=== PATIENT | male | born 1950 | race Caucasian/White ===

== ENCOUNTER 2016-10-03 03:38 | Emergency (ER) | payer BC, SELFPAY ==
[~2016-10-03] VITALS: Ht 170.2 cm; Wt 63.2 kg
[2016-10-03] MEDS ORDERED: IPRATROPIUM 0.5MG/ALBUTEROL 2.5MG INH SOL UD 3ML (DUONEB)(J7620) As Ordered ONE (03:44)
[2016-10-03] MEDS: IPRATROPIUM 0.5MG/ALBUTEROL 2.5MG INH SOL UD 3ML (DUONEB)(J7620) NEB PRN ×2 (03:49→04:03)
[2016-10-03 03:51] VITALS: O2SAT 97
[2016-10-03 04:03] LABS: BASO % 0.6 % (0.0-1.0); EOS # 0.4 K/mm3 (0.0-0.50); EOS % 4.2 % (0.0-3.0); LARGE UNSTAINED CELL # 0.3 K/mm3 (0.0-0.4); LARGE UNSTAINED CELL % 3.2 % (0.0-4.0); LYMPH # 3.8 K/mm3 (1.5-4.5); MEAN CORPUSCULAR HEMOGLOBIN 31.5 pg (27.0-33.0); MEAN CORPUSCULAR HGB CONC 32.7 g/dl (32.0-36.5); MEAN CORPUSCULAR VOLUME 96.5 fl (80.0-96.0); MONO # 0.6 K/mm3 (0.0-0.8); MONO % 7.3 % (0.0-5.0); NEUTROPHILS # 3.3 K/mm3 (1.8-7.7); NEUTROPHILS % 39.6 % (36.0-66.0); PLATELET COUNT, AUTOMATED 323 k/mm3 (150-450); WHITE BLOOD COUNT 8.4 K/mm3 (4.0-10.0)
[2016-10-03 04:04] LABS: ABG BASE EXCESS -2.1 (-2.0-2.0); ABG HCO3 25.7 MEQ/L (22.0-26.0); ABG PARTIAL PRESSURE CO2 55.6 mmHg (35.0-45.0); ABG PARTIAL PRESSURE O2 156.9 mmHg (75.0-100.0); ABG STANDARD HCO3 22.8 MEQ/L (22.0-26.0); ABG TOTAL CO2 27.4 MEQ/L (23.0-31.0); ABG pH (ARTERIAL) 7.282 UNITS (7.350-7.450)
[2016-10-03 04:34] LABS: ANION GAP 6 MEQ/L (8-16); BLOOD UREA NITROGEN 18 MG/DL (7-18); CALCIUM LEVEL 8.5 MG/DL (8.8-10.2); CARBON DIOXIDE LEVEL 28 MEQ/L (21-32); CHLORIDE LEVEL 110 MEQ/L (98-107); CREATININE FOR GFR 0.84 MG/DL (0.70-1.30); GLOMERULAR FILTRATION RATE > 60.0 (>49); GLUCOSE, FASTING 160 MG/DL (80-110); SODIUM LEVEL 144 MEQ/L (136-145)
[2016-10-03 05:48] LABS: ABG BASE EXCESS -0.2 (-2.0-2.0); ABG HCO3 25.5 MEQ/L (22.0-26.0); ABG PARTIAL PRESSURE CO2 45.8 mmHg (35.0-45.0); ABG PARTIAL PRESSURE O2 103.9 mmHg (75.0-100.0); ABG STANDARD HCO3 24.3 MEQ/L (22.0-26.0); ABG TOTAL CO2 26.9 MEQ/L (23.0-31.0); ABG pH (ARTERIAL) 7.364 UNITS (7.350-7.450)
[2016-10-03] MEDS ORDERED: PRED20TA PO (07:33)
[2016-10-03 07:41] VITALS: BP 107/59
--- NOTE | 2016-10-03 07:53 | REP ---
Portable chest: Single view. History: Dyspnea and cough. Comparison study: November 19, 2015 Findings: The lungs are hyperinflated but clear. EKG electrodes are seen. Heart size is normal. Pulmonary vasculature is not increased. No bony abnormality is seen. Impression: Hyperinflation otherwise no acute disease. Signed by Morgan Sierra MD 10/03/2016 07:45 A
--- NOTE | 2016-10-04 10:17 | ECGEPIP ---
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
== END 2016-10-03 07:54 | disposition home or self-care (01) ==
LOC: EDBD 03:38 → M ED 03:38
DX: J96.02 Acute respiratory failure with hypercapnia (principal); J44.9 Chronic obstructive pulmonary disease, unspecified; F17.210 Nicotine dependence, cigarettes, uncomplicated

== ENCOUNTER → 2017-11-04 | Outpatient (CLI) | payer OTHER ==
[2017-11-04 10:10] LABS: HEMATOCRIT 44.6 % (42.0-52.0); HEMOGLOBIN 14.9 g/dl (13.5-17.5); MEAN CORPUSCULAR HEMOGLOBIN 31.2 pg (27.0-33.0); MEAN CORPUSCULAR HGB CONC 33.4 g/dl (32.0-36.5); MEAN CORPUSCULAR VOLUME 93.3 fl (80.0-96.0); PLATELET COUNT, AUTOMATED 298 10^3/uL (150-450); RED BLOOD COUNT 4.78 10^6/uL (4.30-6.10); RED CELL DISTRIBUTION WIDTH 13.7 % (11.5-14.5)
[2017-11-04 10:46] LABS: ALBUMIN 3.5 GM/DL (3.2-5.2); ALBUMIN/GLOBULIN RATIO 1.06 (1.00-1.93); ALKALINE PHOSPHATASE 74 U/L (45-117); ALT/SGPT 21 U/L (12-78); ANION GAP 8 MEQ/L (8-16); AST/SGOT 13 U/L (7-37); BILIRUBIN,TOTAL 0.2 MG/DL (0.2-1.0); BLOOD UREA NITROGEN 19 MG/DL (7-18); CALCIUM LEVEL 9.4 MG/DL (8.8-10.2); CARBON DIOXIDE LEVEL 27 MEQ/L (21-32); CHLORIDE LEVEL 105 MEQ/L (98-107); CHOLESTEROL LEVEL 211 MG/DL (<200); CHOLESTEROL RISK RATIO 2.776 (<5); CREATININE FOR GFR 0.85 MG/DL (0.70-1.30); GLOMERULAR FILTRATION RATE > 60.0 (>49); GLUCOSE, FASTING 95 MG/DL (70-100); HDL CHOLESTEROL 76 MG/DL (>40); LDL CHOLESTEROL 116 MG/DL (<100); NON-HDL-C 135 MG/DL; POTASSIUM SERUM 4.3 MEQ/L (3.5-5.1); SODIUM LEVEL 140 MEQ/L (136-145); TOTAL PROTEIN 6.8 GM/DL (6.4-8.2); TRIGLYCERIDES LEVEL 97 MG/DL (<150)
== END ==
LOC: M LAB 09:36
DX: Z00.01 Encounter for general adult medical examination with abnormal findings (principal); J44.9 Chronic obstructive pulmonary disease, unspecified; I45.9 Conduction disorder, unspecified; F17.210 Nicotine dependence, cigarettes, uncomplicated
CPT/HCPCS: 80053

== ENCOUNTER → 2017-11-18 | Outpatient (CLI) | payer OTHER | LOC: M RAD 08:12 | DX: Z12.2 Encounter for screening for malignant neoplasm of respiratory organs (principal); F17.210 Nicotine dependence, cigarettes, uncomplicated; R91.1 Solitary pulmonary nodule | CPT/HCPCS: G0297 ==

== ENCOUNTER → 2017-12-30 | Outpatient (CLI) | payer OTHER | LOC: M PLARAD 14:11 | DX: R91.1 Solitary pulmonary nodule (principal) | CPT/HCPCS: 78815 ==

== ENCOUNTER → 2018-03-27 | Outpatient (CLI) | payer MEDICARE ==
[~2018-03-27] MED LIST: PRED20TA PO
--- NOTE | 2018-03-27 09:05 | REP ---
CT of the chest without IV contrast: Comparisons are the low-dose lung screening CT dated 11/18/2017 and the whole body PET scan dated 12/30/2017. There is a 9 ml spiculated lung nodule posteriorly in the apex of the right upper lobe on image 22, not significantly changed from the comparison studies. No other nodules or masses are identified. There are no infiltrates or pleural effusions. There is bronchiectasis. There is no mediastinal lymph node enlargement. In the absence of IV contrast the study is insensitive for hilar lymph node enlargement. There is no axillary lymph node enlargement. The unenhanced thoracic aorta is unremarkable except for occasional calcified atheroma. Cardiac size is normal. There is no pericardial effusion. The visualized unenhanced upper abdominal contents are unremarkable. There is no adrenal mass. Impression: Spiculated 9 mm nodule posteriorly in the right upper lobe apex, similar to the comparison studies. No other nodules or masses. Bronchiectasis. Electronically Signed by Paul Alvarez MD 03/27/2018 08:58 A
== END ==
LOC: M RAD 07:50
PROVIDERS: ATTEND Internal Medicine Pulmonary Disease
DX: R91.1 Solitary pulmonary nodule (principal); J47.9 Bronchiectasis, uncomplicated

== ENCOUNTER 2018-07-05 21:48 | Emergency (ER) | payer MEDICARE ==
[~2018-07-05] VITALS: Ht 175.3 cm; Wt 63.6 kg
[2018-07-05] MEDS ORDERED: AMOX875T (21:57)
[2018-07-05] MEDS ORDERED: PRED10TA2 (21:57)
[2018-07-05] MEDS ORDERED: ALBU8.5H (21:57)
[2018-07-05] MEDS ORDERED: ALBU83IN (21:57)
[2018-07-05 22:26] LABS: BASO % 0.5 % (0.0-1.0); EOS # 0.3 10^3/uL (0.0-0.50); EOS % 3.6 % (0.0-3.0); HEMATOCRIT 42.6 % (42.0-52.0); HEMOGLOBIN 14.1 g/dl (13.5-17.5); LYMPH # 1.8 10^3/uL (1.5-4.5); LYMPH % 21.4 % (24.0-44.0); MEAN CORPUSCULAR HEMOGLOBIN 31.5 pg (27.0-33.0); MEAN CORPUSCULAR HGB CONC 33.1 g/dl (32.0-36.5); MEAN CORPUSCULAR VOLUME 95.1 fl (80.0-96.0); MONO # 0.9 10^3/uL (0.0-0.8); MONO % 10.4 % (0.0-5.0); NEUTROPHILS # 5.4 10^3/uL (1.8-7.7); PLATELET COUNT, AUTOMATED 251 10^3/uL (150-450); RED BLOOD COUNT 4.48 10^6/uL (4.30-6.10); WHITE BLOOD COUNT 8.5 10^3/uL (4.0-10.0)
[2018-07-05 22:33] LABS: BLOOD UREA NITROGEN 14 MG/DL (7-18); CALCIUM LEVEL 8.4 MG/DL (8.8-10.2); CARBON DIOXIDE LEVEL 26 MEQ/L (21-32); CHLORIDE LEVEL 111 MEQ/L (98-107); CREATININE FOR GFR 0.71 MG/DL (0.70-1.30); GLOMERULAR FILTRATION RATE > 60.0 (>49); GLUCOSE, FASTING 128 MG/DL (70-100); POTASSIUM SERUM 4.4 MEQ/L (3.5-5.1); SODIUM LEVEL 142 MEQ/L (136-145)
[2018-07-05] MEDS ORDERED: IPRATROPIUM 0.5MG/ALBUTEROL 2.5MG INH SOL UD 3ML (DUONEB)(J7620) NEB ONE (23:30)
[2018-07-06] MEDS ORDERED: PRED20TA PO (01:08)
[2018-07-06 01:15] VITALS: BP 119/67
--- NOTE | 2018-07-06 09:01 | REP ---
Clinical: Cough and shortness of breath . Comparison: 10/03/2016 . Technique: PA and lateral. Findings: The mediastinum and cardiac silhouette are normal. The lung garza are clear and without acute consolidation, effusion, or pneumothorax. The skeletal structures are intact and normal. Impression: 1. No acute cardiopulmonary process. Electronically Signed by Oliver Madden MD 07/06/2018 08:52 A
== END 2018-07-06 01:30 | disposition home or self-care (01) ==
LOC: M ED 21:48
DX: J44.1 Chronic obstructive pulmonary disease with (acute) exacerbation (principal); J45.909 Unspecified asthma, uncomplicated; Z72.0 Tobacco use

== ENCOUNTER 2018-08-02 00:04 | Emergency (ER) | payer MEDICARE ==
[~2018-08-02] VITALS: Ht 175.3 cm; Wt 61.4 kg
[~2018-08-02 00:04] MED LIST changes: +ALBU8.5H; +ALBU83IN; +AMOX875T; +PRED10TA2
[2018-08-02] MEDS ORDERED: dexameTHASONE 20 MG/5 ML VIAL (J1100) IV ONE (00:15)
[2018-08-02] MEDS ORDERED: IPRATROPIUM 0.5MG/ALBUTEROL 2.5MG INH SOL UD 3ML (DUONEB)(J7620) NEB ONE (00:15)
[2018-08-02 00:16] VITALS: BP 142/89
[2018-08-02] MEDS ORDERED: PRED20TA PO (00:21)
[2018-08-02 00:29] LABS: BASO % 0.6 % (0.0-1.0); EOS # 0.2 10^3/uL (0.0-0.50); EOS % 3.5 % (0.0-3.0); HEMATOCRIT 44.4 % (42.0-52.0); HEMOGLOBIN 14.4 g/dl (13.5-17.5); LYMPH % 30.1 % (24.0-44.0); MEAN CORPUSCULAR HEMOGLOBIN 31.3 pg (27.0-33.0); MEAN CORPUSCULAR HGB CONC 32.4 g/dl (32.0-36.5); MEAN CORPUSCULAR VOLUME 96.5 fl (80.0-96.0); MONO # 0.7 10^3/uL (0.0-0.8); MONO % 10.4 % (0.0-5.0); NEUTROPHILS # 3.6 10^3/uL (1.8-7.7); NEUTROPHILS % 55.2 % (36.0-66.0); PLATELET COUNT, AUTOMATED 264 10^3/uL (150-450); WHITE BLOOD COUNT 6.6 10^3/uL (4.0-10.0)
[2018-08-02 01:03] LABS: BLOOD UREA NITROGEN 15 MG/DL (7-18); CALCIUM LEVEL 9.6 MG/DL (8.8-10.2); CARBON DIOXIDE LEVEL 32 MEQ/L (21-32); CHLORIDE LEVEL 108 MEQ/L (98-107); CK-MB VALUE MASS 2.8 NG/ML (<3.6); CPK CREATINE PHOSPHOKINASE 191 U/L (39-308); GLOMERULAR FILTRATION RATE > 60.0 (>49); GLUCOSE, FASTING 136 MG/DL (70-100); MB/CK RELATIVE INDEX 1.47 (< OR =4); SODIUM LEVEL 145 MEQ/L (136-145); TROPONIN I < 0.02 NG/ML (< 0.10)
--- NOTE | 2018-08-02 07:06 | ECGEPIP ---
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
--- NOTE | 2018-08-02 08:21 | REP ---
Portable chest, 12:51 a.m., single AP view with the patient sitting: Comparisons are 10 10/31/2015 and 07/05/2018. There is chronic hyperinflation suggestive of COPD, however, requiring clinical confirmation. The lung garza otherwise clear. The cardiac size is normal. The marcie, mediastinum, skeletal structures are unremarkable. Impression: No acute cardiopulmonary findings. Chronic hyperinflation. Electronically Signed by Paul Alvarez MD 08/02/2018 08:13 A
== END 2018-08-02 01:13 | disposition home or self-care (01) ==
LOC: M ED 00:04
DX: J44.9 Chronic obstructive pulmonary disease, unspecified (principal); I45.10 Unspecified right bundle-branch block; J45.909 Unspecified asthma, uncomplicated; Z72.0 Tobacco use
CPT/HCPCS: 36415; 71045; 80048; 82550; 82553; 84484; 85025; 93005; 93041; 94640; 94760; 99285; J1100

== ENCOUNTER → 2018-09-22 | Outpatient (CLI) | payer MEDICARE ==
--- NOTE | 2018-09-23 07:44 | REP ---
REASON FOR EXAM: Followup pulmonary nodule. All priors were reviewed. The latest is 03/27/2018. The latest prior showed a 9 mm sized right upper lobe spiculated nodule felt to be similar compared to prior exams. The mediastinum nd pulmonary marcie are unchanged. There is no evidence of a mass or adrenopathy. There are no pleural or pericardial effusions. There is no change in the appearance of the imaged upper abdomen or imaged osseous structures. Evaluation of the lung garza shows an unchanged spiculated nodule in the right upper lobe which measures 9 mm. There is lung field hyperexpansion and cylindrical bronchiectasis status quo. No new abnormal nodules, masses, or opacities have developed since the latest prior. IMPRESSION:1. Stable CT findings as described above. The right upper lobe spiculated nodule has been stable. 2. Other chronic lung field changes which also appear stable. Continued surveillance is recommended. Electronically Signed by Lacho Zimmerman DO 09/23/2018 09:35 A
== END ==
LOC: M RAD 12:38
PROVIDERS: ATTEND Internal Medicine Pulmonary Disease
DX: R91.1 Solitary pulmonary nodule (principal)

== ENCOUNTER 2018-10-09 23:46 | Emergency (ER) | payer MEDICARE ==
[~2018-10-09] VITALS: Ht 175.3 cm; Wt 61.4 kg
[2018-10-10 00:11] LABS: BASO % 0.5 % (0.0-1.0); EOS # 0.2 10^3/uL (0.0-0.50); EOS % 2.4 % (0.0-3.0); HEMATOCRIT 43.7 % (42.0-52.0); HEMOGLOBIN 14.5 g/dl (13.5-17.5); LYMPH # 2.4 10^3/uL (1.5-4.5); LYMPH % 28.9 % (24.0-44.0); MEAN CORPUSCULAR HEMOGLOBIN 31.2 pg (27.0-33.0); MEAN CORPUSCULAR HGB CONC 33.2 g/dl (32.0-36.5); MONO # 0.8 10^3/uL (0.0-0.8); MONO % 10.2 % (0.0-5.0); NEUTROPHILS # 4.7 10^3/uL (1.8-7.7); NEUTROPHILS % 57.8 % (36.0-66.0); PLATELET COUNT, AUTOMATED 256 10^3/uL (150-450); RED BLOOD COUNT 4.65 10^6/uL (4.30-6.10); WHITE BLOOD COUNT 8.2 10^3/uL (4.0-10.0)
[2018-10-10] MEDS ORDERED: dexameTHASONE 20 MG/5 ML VIAL (J1100) IV ONE (00:30)
[2018-10-10 00:31] LABS: BLOOD UREA NITROGEN 18 MG/DL (7-18); CALCIUM LEVEL 9.6 MG/DL (8.8-10.2); CARBON DIOXIDE LEVEL 31 MEQ/L (21-32); CHLORIDE LEVEL 107 MEQ/L (98-107); CREATININE FOR GFR 0.94 MG/DL (0.70-1.30); GLOMERULAR FILTRATION RATE > 60.0 (>49); GLUCOSE, FASTING 129 MG/DL (70-100); POTASSIUM SERUM 3.9 MEQ/L (3.5-5.1); SODIUM LEVEL 143 MEQ/L (136-145)
[2018-10-10] MEDS: IPRATROPIUM 0.5MG/ALBUTEROL 2.5MG INH SOL UD 3ML (DUONEB)(J7620) NEB SCH ×3 (00:31→00:43)
[2018-10-10 01:15] VITALS: BP 105/56
[2018-10-10] MEDS ORDERED: PRED20TA PO (01:20)
--- NOTE | 2018-10-10 07:45 | ECGEPIP ---
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
--- NOTE | 2018-10-10 07:51 | REP ---
Clinical: Cough and dyspnea . Comparison: 08/02/2018 . Findings: The mediastinum and cardiac silhouette are stable and within normal limits for portable technique. The lung garza are clear without acute consolidation, effusion, or pneumothorax. Skeletal structures are intact. Impression: No acute cardiopulmonary process appreciated. Electronically Signed by Oliver Madden MD 10/10/2018 07:43 A
== END 2018-10-10 01:30 | disposition home or self-care (01) ==
LOC: M ED 23:46
DX: J44.9 Chronic obstructive pulmonary disease, unspecified (principal); I45.10 Unspecified right bundle-branch block
CPT/HCPCS: 71045; 80048; 83605; 85025; 93005; 93041; 94640; 94760; 96374; 99285; J1100

== ENCOUNTER 2019-03-24 13:58 | Emergency (ER) | payer MEDICARE, OTHER ==
[~2019-03-24] VITALS: Ht 175.3 cm; Wt 65.4 kg
[2019-03-24 13:59] VITALS: BP 139/91
--- NOTE | 2019-03-24 14:39 | REP ---
Clinical: Left-sided chest/rib pain . Comparison: 08/02/2018 . Technique: PA and lateral. Findings: The mediastinum and cardiac silhouette are normal. The lung garza are clear and without acute consolidation, effusion, or pneumothorax. The skeletal structures are intact and normal. Impression: 1. No acute cardiopulmonary process. Electronically Signed by Oliver Madden MD 03/24/2019 02:31 P
== END 2019-03-24 19:09 | disposition home or self-care (01) ==
LOC: M ED 13:58
DX: R07.81 Pleurodynia (principal); J44.9 Chronic obstructive pulmonary disease, unspecified; J45.909 Unspecified asthma, uncomplicated; F17.210 Nicotine dependence, cigarettes, uncomplicated

== ENCOUNTER → 2020-05-10 | Outpatient (CLI) | payer MEDICARE ==
--- NOTE | 2020-05-10 09:06 | REP ---
INDICATION: NICOTINE DEPEND COMPARISON: 11/18/2017, 09/12/2018 TECHNIQUE: Axial noncontrast images from the thoracic inlet to the upper abdomen using low-dose lung screening technique (LDCT). FINDINGS: 10 mm right upper pole nodule (series 201; image 21) along with chronic emphysematous changes remains stable. No acute consolidation, suspicious nodule or mass lesion. No pleural effusion. No pneumothorax. Bronchiectasis again noted. IMPRESSION: Lung-RADS category 2. Stable nodule and emphysematous changes. Management recommendations include annual low-dose CT surveillance. <Electronically signed by Oliver Madden > 05/10/20 [id number]
== END ==
LOC: M RAD 07:27
PROVIDERS: ATTEND Family Medicine
DX: Z12.2 Encounter for screening for malignant neoplasm of respiratory organs (principal); F17.210 Nicotine dependence, cigarettes, uncomplicated

== ENCOUNTER → 2020-05-24 | Outpatient (CLI) | payer MEDICARE ==
--- NOTE | 2020-05-24 16:31 | REP ---
INDICATION: CERVICALGIA. COMPARISON: None. TECHNIQUE: Plain film study of the cervical spine includes AP lateral and oblique views. FINDINGS: No evidence of fracture or subluxation. There is disc space narrowing and anterior osteophytic spurring. The prevertebral soft tissues appear within normal limits. Go flexion extension views are without evidence of instability. The oblique views do show suggest foraminal narrowing at multiple levels, C4-5, C5-6, and C6-7 bilaterally. IMPRESSION: No acute findings. Degenerative changes. Oblique views suggest degenerative foraminal narrowing as described. MRI recommended for further evaluation. <Electronically signed by Agustin Roasles > 05/24/20 0017
== END ==
LOC: M RAD 14:12
PROVIDERS: ATTEND Family Medicine
DX: M54.2 Cervicalgia (principal)

== ENCOUNTER → 2020-07-04 | Outpatient (CLI) | payer MEDICARE ==
--- NOTE | 2020-07-04 15:29 | REPVR ---
PROCEDURE INFORMATION: Exam: MR Cervical Spine Without Contrast Exam date and time: 07/04/2020 10:01 AM Age: 69 years old Clinical indication: Other: Cervical ddd TECHNIQUE: Imaging protocol: Multiplanar magnetic resonance images of the cervical spine without contrast. COMPARISON: CR Spine, Cervical 05/24/2020 2:21 PM FINDINGS: Vertebrae: Unremarkable. Spinal cord: Normal signal. No cord compression. Discs/Spinal canal/Neural foramina: C2/3: No disc protrusion or extrusion. Normal foramina. No stenosis. C3/4: Posterior osteophytic spurring without disc protrusion or extrusion. Spinal stenosis at 7 mm. Spurring causes moderate left and moderate to severe right foraminal narrowing. There is central disc bulging. C4/5: Posterior osteophytic spurring causes spinal stenosis at 7.7 mm. There is no disc protrusion or extrusion. Foraminal narrowing is severe bilaterally due to spurring. Central disc bulging. C5/6: Posterior osteophytic spurring causes spinal stenosis at 7.7 mm. There is central disc bulging. Looks good to may the mass a There is no disc protrusion or extrusion. Foraminal narrowing severe due to osteophytic spurring bilaterally. C6/7: There is a central disc left-sided protrusion. There is spinal stenosis at 8 mm. Foraminal narrowing is moderate to severe bilaterally due to spurring. C7/T1: No acute abnormality. Vasculature: Expected flow voids in the vertebral arteries. Soft tissues: Unremarkable IMPRESSION: Multilevel spinal stenosis with multilevel disc bulging. Multilevel foraminal narrowing due to diffuse spurring. Central protrusion extending to the left C6/7. Electronically signed by: Roger Hernandez On 07/04/2020 15:29:27 PM
== END ==
LOC: M PLARAD 08:34
PROVIDERS: ATTEND Family Medicine
DX: M50.90 Cervical disc disorder, unspecified, unspecified cervical region (principal)

== ENCOUNTER → 2020-09-04 | Outpatient (CLI) | payer MEDICARE ==
[2020-09-04 11:37] LABS: BASO % 0.6 % (0.0-1.0); EOS # 0.2 10^3/uL (0.0-0.5); EOS % 2.5 % (0.0-3.0); HEMATOCRIT 45.4 % (42.0-52.0); HEMOGLOBIN 14.8 g/dl (13.5-17.5); LYMPH # 1.9 10^3/uL (1.5-5.0); LYMPH % 29.5 % (24.0-44.0); MEAN CORPUSCULAR HGB CONC 32.6 g/dl (32.0-36.5); MONO # 0.8 10^3/uL (0.0-0.8); NEUTROPHILS # 3.5 10^3/uL (1.5-8.5); NEUTROPHILS % 55.1 % (36.0-66.0); PLATELET COUNT, AUTOMATED 306 10^3/uL (150-450); RED BLOOD COUNT 4.78 10^6/uL (4.30-6.10); WHITE BLOOD COUNT 6.3 10^3/uL (4.0-10.0)
== END ==
LOC: M LAB 11:07
PROVIDERS: ATTEND Neurological Surgery
DX: M47.812 Spondylosis without myelopathy or radiculopathy, cervical region (principal)

== ENCOUNTER → 2020-09-26 | Outpatient (REF) | payer MEDICARE ==
[2020-09-27 12:12] LABS: HEMATOCRIT 45.1 % (42.0-52.0); HEMOGLOBIN 14.5 g/dl (13.5-17.5); MEAN CORPUSCULAR HEMOGLOBIN 30.4 pg (27.0-33.0); MEAN CORPUSCULAR HGB CONC 32.2 g/dl (32.0-36.5); MEAN CORPUSCULAR VOLUME 94.5 fl (80.0-96.0); PLATELET COUNT, AUTOMATED 300 10^3/uL (150-450); RED BLOOD COUNT 4.77 10^6/uL (4.30-6.10); WHITE BLOOD COUNT 6.6 10^3/uL (4.0-10.0)
[2020-09-27 13:14] LABS: BLOOD UREA NITROGEN 20 MG/DL (7-18); CALCIUM LEVEL 9.2 MG/DL (8.8-10.2); CARBON DIOXIDE LEVEL 31 MEQ/L (21-32); CHLORIDE LEVEL 104 MEQ/L (98-107); CREATININE FOR GFR 0.96 MG/DL (0.70-1.30); GLOMERULAR FILTRATION RATE > 60.0 (>49); GLUCOSE, FASTING 91 MG/DL (70-100); POTASSIUM SERUM 6.6 MEQ/L (3.5-5.1); SODIUM LEVEL 136 MEQ/L (136-145)
== END ==
LOC: M SFHCCLAY 15:01
PROVIDERS: ATTEND Family Medicine
DX: J44.9 Chronic obstructive pulmonary disease, unspecified (principal)

== ENCOUNTER → 2020-09-26 | Outpatient (CLI) | payer MEDICARE | LOC: M CLY 15:03 | PROVIDERS: ATTEND Family Medicine | DX: J44.9 Chronic obstructive pulmonary disease, unspecified (principal) | CPT/HCPCS: 71046; G0463 ==

== ENCOUNTER → 2020-09-27 | Outpatient (CLI) | payer MEDICARE | LOC: M LAB 14:13 | PROVIDERS: ATTEND Family Medicine | DX: E87.5 Hyperkalemia (principal) ==

== ENCOUNTER → 2021-07-18 | Outpatient (CLI) | payer MEDICARE ==
[~2021-07-18] MED LIST changes: +ALBU2.5V10; -ALBU83IN
== END ==
LOC: M RAD 17:59
PROVIDERS: ATTEND Family Medicine
DX: Z12.2 Encounter for screening for malignant neoplasm of respiratory organs (principal); F17.210 Nicotine dependence, cigarettes, uncomplicated

== ENCOUNTER → 2021-07-30 | Outpatient (CLI) | payer MEDICARE | LOC: M PLARAD 10:20 | PROVIDERS: ATTEND Family Medicine | DX: R91.8 Other nonspecific abnormal finding of lung field (principal) | CPT/HCPCS: 78816; A9552 ==

== ENCOUNTER → 2022-02-14 | Outpatient (CLI) | payer MEDICARE | LOC: M PLAIMG 13:35 | PROVIDERS: ATTEND Thoracic Surgery (Cardiothoracic Vascular Surgery) | DX: R91.8 Other nonspecific abnormal finding of lung field (principal) ==

== ENCOUNTER → 2022-03-18 | Outpatient (CLI) | payer MEDICARE ==
[~2022-03-18] MED LIST changes: -ALBU8.5H; +ALBU8.5H INH; +AMOX875T PO
== END ==
LOC: M LABSMTC 11:16
PROVIDERS: ATTEND Anesthesiology
DX: Z01.812 Encounter for preprocedural laboratory examination (principal); Z11.52 Encounter for screening for COVID-19

== ENCOUNTER 2022-03-20 06:13 | Day surgery (SDC) | payer MEDICARE ==
[~2022-03-20] VITALS: Ht 175.3 cm; Wt 61.2 kg
[~2022-03-20 06:13] MED LIST changes: +BSS IRRIG/VANCO(10MG)/TOBRA(5MG)/EPINEPH(1:1000-0.5CC)500ML BAG-ORONLY IR ONE; +CYCLOPENTOLATE 1% OPHTH SOLN 2ML BTL OS SCH; +LIDOCAINE 3.5 % 1ML OPHTH TOPICAL GEL OU ONE; +OFLOXACIN 0.3 % (OCUFLOX) OPTH SOL 5ML OS ONE; +PHENYLEPHRINE 10% OPHTH SOL 5ML OS PRN; +PHENYLEPHRINE 2.5% OPHTH SOL 2ML OS SCH; +TROPICAMIDE 1% OPHTH SOLN 15ML OS SCH
[2022-03-20] MEDS ORDERED: LIDOCAINE 1% SDV 5ML VIAL As Ordered ONE (06:42)
[2022-03-20] MEDS ORDERED: CEFUROXIME 1MG/0.1ML INTRACAMERAL INJ As Ordered ONE (06:59)
[2022-03-20] MEDS ORDERED: fentaNYL 100 MCG/2 ML INJECTION As Ordered ONE (07:35)
[2022-03-20] MEDS ORDERED: MIDAZOLAM INJ 2MG/2ML VIAL As Ordered ONE (07:35)
[2022-03-20 08:21] VITALS: BP 133/81
== END 2022-03-20 08:38 | disposition home or self-care (01) ==
LOC: M SDC 06:13
PROVIDERS: ATTEND Ophthalmology
DX: H25.12 Age-related nuclear cataract, left eye (principal); J44.9 Chronic obstructive pulmonary disease, unspecified; F17.210 Nicotine dependence, cigarettes, uncomplicated; Z79.2 Long term (current) use of antibiotics
CPT/HCPCS: 66984; J0697; J2250; J3010; V2632

== ENCOUNTER → 2022-08-27 | Outpatient (CLI) | payer MEDICARE ==
[~2022-08-27] MED LIST changes: -BSS IRRIG/VANCO(10MG)/TOBRA(5MG)/EPINEPH(1:1000-0.5CC)500ML BAG-ORONLY IR ONE; -CYCLOPENTOLATE 1% OPHTH SOLN 2ML BTL OS SCH; -LIDOCAINE 3.5 % 1ML OPHTH TOPICAL GEL OU ONE; -OFLOXACIN 0.3 % (OCUFLOX) OPTH SOL 5ML OS ONE; -PHENYLEPHRINE 10% OPHTH SOL 5ML OS PRN; -PHENYLEPHRINE 2.5% OPHTH SOL 2ML OS SCH; -TROPICAMIDE 1% OPHTH SOLN 15ML OS SCH
== END ==
LOC: M PLAIMG 11:34
PROVIDERS: ATTEND Family Medicine
DX: R91.1 Solitary pulmonary nodule (principal)

== ENCOUNTER → 2022-09-19 | Outpatient (CLI) | payer MEDICARE | LOC: M RAD 11:55 | PROVIDERS: ATTEND Family Medicine | DX: R91.1 Solitary pulmonary nodule (principal) ==

== ENCOUNTER → 2022-10-11 | Outpatient (REF) | payer MEDICARE | LOC: M SFHCCLAY 07:34 | PROVIDERS: ATTEND Family Medicine | DX: L82.1 Other seborrheic keratosis (principal) ==

== ENCOUNTER → 2022-12-30 | Outpatient (CLI) | payer MEDICARE | LOC: M RAD 10:02 | PROVIDERS: ATTEND Family Medicine | DX: R91.1 Solitary pulmonary nodule (principal) ==

== ENCOUNTER → 2023-07-21 | Outpatient (CLI) | payer MEDICARE | LOC: M RAD 16:34 | PROVIDERS: ATTEND Thoracic Surgery (Cardiothoracic Vascular Surgery) | DX: R91.1 Solitary pulmonary nodule (principal) ==

== ENCOUNTER → 2024-08-27 | Outpatient (CLI) | payer MEDICARE ==
[~2024-08-27] MED LIST changes: +ACET650T61 PO; +IPRA0.00; +PRED10TA2 PO
== END ==
LOC: M RAD 06:38
PROVIDERS: ATTEND Physician Assistant
DX: J98.11 Atelectasis (principal); J43.9 Emphysema, unspecified; J47.9 Bronchiectasis, uncomplicated; R91.8 Other nonspecific abnormal finding of lung field; Z87.891 Personal history of nicotine dependence

== ENCOUNTER → 2024-09-08 | Outpatient (REF) | payer MEDICARE ==
[2024-09-08 18:02] LABS: APPEARANCE, URINE CLEAR (CLEAR); BACTERIA, URINE AUTO NEGATIVE (NEGATIVE); BILIRUBIN, URINE AUTO NEGATIVE (NEGATIVE); BLOOD, URINE BLOOD 1+ (NEGATIVE); GLUCOSE, URINE (UA) AUTO NEGATIVE (NEGATIVE); KETONE, URINE AUTO TRACE mg/dL (NEGATIVE); LEUKOCYTE ESTERASE, URINE AUTO NEGATIVE (NEGATIVE); MUCUS, URINE SMALL (NEGATIVE); NITRITE, URINE AUTO NEGATIVE (NEGATIVE); PROTEIN, URINE AUTO NEGATIVE (NEGATIVE); RBC, URINE AUTO 5 /HPF (0-3); SPECIFIC GRAVITY URINE AUTO 1.021 (1.002-1.035); SQUAMOUS EPITHELIAL CELL UR AU 0 /HPF (0-6); UROBILINOGEN, URINE AUTO 0.2 mg/dL (0.0-2.0); WBC, URINE AUTO 0 /HPF (0-3)
[2024-09-08 18:35] LABS: CALCIUM LEVEL 9.8 MG/DL (8.3-10.6); CARBON DIOXIDE LEVEL 29 MMOL/L (20-31); CHLORIDE LEVEL 104 MMOL/L (98-107); CREATININE FOR GFR 0.88 MG/DL (0.70-1.30); GLOMERULAR FILTRATION RATE > 90.0 (>42); POTASSIUM SERUM 4.4 MMOL/L (3.5-5.1); SODIUM LEVEL 143 MMOL/L (136-145)
== END ==
LOC: M SFHCCLAY 14:03
PROVIDERS: ATTEND Physician Assistant
DX: N17.9 Acute kidney failure, unspecified (principal); R31.29 Other microscopic hematuria; J44.9 Chronic obstructive pulmonary disease, unspecified; E04.1 Nontoxic single thyroid nodule; R73.03 Prediabetes; L30.9 Dermatitis, unspecified; Z12.11 Encounter for screening for malignant neoplasm of colon; Z87.891 Personal history of nicotine dependence

== ENCOUNTER → 2024-09-16 | Outpatient (REF) | payer MEDICARE ==
[2024-09-16 12:53] LABS: APPEARANCE, URINE HAZY (CLEAR); BACTERIA, URINE AUTO NEGATIVE (NEGATIVE); BILIRUBIN, URINE AUTO NEGATIVE (NEGATIVE); BLOOD, URINE BLOOD 1+ (NEGATIVE); GLUCOSE, URINE (UA) AUTO NEGATIVE (NEGATIVE); KETONE, URINE AUTO NEGATIVE (NEGATIVE); LEUKOCYTE ESTERASE, URINE AUTO NEGATIVE (NEGATIVE); NITRITE, URINE AUTO NEGATIVE (NEGATIVE); PROTEIN, URINE AUTO NEGATIVE (NEGATIVE); RBC, URINE AUTO 11 /HPF (0-3); SPECIFIC GRAVITY URINE AUTO 1.014 (1.002-1.035); SQUAMOUS EPITHELIAL CELL UR AU 0 /HPF (0-6); UROBILINOGEN, URINE AUTO 0.2 mg/dL (0.0-2.0); WBC, URINE AUTO 2 /HPF (0-3)
== END ==
LOC: M SFHCCLAY 08:06
PROVIDERS: ATTEND Physician Assistant
DX: N20.0 Calculus of kidney (principal)

== ENCOUNTER → 2024-10-21 | Outpatient (REF) | payer MEDICARE ==
[2024-10-21 19:06] LABS: APPEARANCE, URINE HAZY (CLEAR); BACTERIA, URINE AUTO NEGATIVE (NEGATIVE); BILIRUBIN, URINE AUTO NEGATIVE (NEGATIVE); BLOOD, URINE BLOOD 1+ (NEGATIVE); CALCIUM OXALATE CRYSTALS SMALL; GLUCOSE, URINE (UA) AUTO NEGATIVE (NEGATIVE); KETONE, URINE AUTO TRACE mg/dL (NEGATIVE); LEUKOCYTE ESTERASE, URINE AUTO NEGATIVE (NEGATIVE); MUCUS, URINE SMALL (NEGATIVE); NITRITE, URINE AUTO NEGATIVE (NEGATIVE); PROTEIN, URINE AUTO 1+ mg/dL (NEGATIVE); RBC, URINE AUTO 35 /HPF (0-3); SPECIFIC GRAVITY URINE AUTO 1.024 (1.002-1.035); SQUAMOUS EPITHELIAL CELL UR AU 0 /HPF (0-6); UROBILINOGEN, URINE AUTO 2.0 mg/dL (0.0-2.0); WBC, URINE AUTO 1 /HPF (0-3)
== END ==
LOC: M SMT 16:58
PROVIDERS: ATTEND Nurse Practitioner Family
DX: R31.29 Other microscopic hematuria (principal)

== ENCOUNTER → 2024-10-29 | Outpatient (CLI) | payer MEDICARE | LOC: M RAD 11:42 | PROVIDERS: ATTEND Physician Assistant | DX: E04.1 Nontoxic single thyroid nodule (principal) ==

== ENCOUNTER → 2024-11-05 | Outpatient (CLI) | payer MEDICARE ==
[2024-11-05 13:01] LABS: CALCIUM LEVEL 9.5 MG/DL (8.3-10.6); CARBON DIOXIDE LEVEL 28 MMOL/L (20-31); CHLORIDE LEVEL 105 MMOL/L (98-107); CREATININE FOR GFR 0.79 MG/DL (0.70-1.30); GLOMERULAR FILTRATION RATE > 90.0 (>42); POTASSIUM SERUM 4.4 MMOL/L (3.5-5.1); SODIUM LEVEL 138 MMOL/L (136-145)
== END ==
LOC: M LAB 11:47
PROVIDERS: ATTEND Nurse Practitioner Family
DX: R31.9 Hematuria, unspecified (principal)

== ENCOUNTER → 2024-11-08 | Outpatient (CLI) | payer MEDICARE ==
[~2024-11-08] MED LIST changes: +ISOVUE-370 76% 100 ML VIAL ONE
== END ==
LOC: M PLAIMG 11:59
PROVIDERS: ATTEND Nurse Practitioner Family
DX: R31.9 Hematuria, unspecified (principal)
CPT/HCPCS: 74178; Q9967

== ENCOUNTER → 2024-12-08 | Outpatient (REF) | payer MEDICARE ==
[~2024-12-08] MED LIST changes: -ISOVUE-370 76% 100 ML VIAL ONE
[2024-12-08 17:38] LABS: APPEARANCE, URINE CLEAR (CLEAR); BACTERIA, URINE AUTO NEGATIVE (NEGATIVE); BILIRUBIN, URINE AUTO NEGATIVE (NEGATIVE); BLOOD, URINE BLOOD 2+ (NEGATIVE); GLUCOSE, URINE (UA) AUTO NEGATIVE (NEGATIVE); KETONE, URINE AUTO NEGATIVE (NEGATIVE); LEUKOCYTE ESTERASE, URINE AUTO NEGATIVE (NEGATIVE); MUCUS, URINE SMALL (NEGATIVE); NITRITE, URINE AUTO NEGATIVE (NEGATIVE); PROTEIN, URINE AUTO NEGATIVE (NEGATIVE); RBC, URINE AUTO 12 /HPF (0-3); SPECIFIC GRAVITY URINE AUTO 1.018 (1.002-1.035); SQUAMOUS EPITHELIAL CELL UR AU 0 /HPF (0-6); UROBILINOGEN, URINE AUTO 0.2 mg/dL (0.0-2.0); WBC, URINE AUTO 1 /HPF (0-3)
== END ==
LOC: M SMT 16:52
PROVIDERS: ATTEND Urology
DX: R31.29 Other microscopic hematuria (principal)

== ENCOUNTER → 2025-01-07 | Outpatient (CLI) | payer MEDICARE ==
[2025-01-07 09:39] LABS: ESTIMATED AVERAGE GLUCOSE 123.0 MG/DL (60-110)
[2025-01-07 10:00] LABS: ALT/SGPT 12 U/L (7.0-40); AST/SGOT 11 U/L (<34); CALCIUM LEVEL 9.5 MG/DL (8.3-10.6); CARBON DIOXIDE LEVEL 29 MMOL/L (20-31); CHLORIDE LEVEL 106 MMOL/L (98-107); CHOLESTEROL LEVEL 160 MG/DL (<200); CHOLESTEROL RISK RATIO 2.72 (<5); CREATININE FOR GFR 0.89 MG/DL (0.70-1.30); GLOMERULAR FILTRATION RATE > 90.0 (>42); LDL CHOLESTEROL 80.0 MG/DL (<100); NON-HDL-C 101.2 MG/DL; POTASSIUM SERUM 4.3 MMOL/L (3.5-5.1); SODIUM LEVEL 143 MMOL/L (136-145); TRIGLYCERIDES LEVEL 106 MG/DL (<150)
== END ==
LOC: M LAB 08:15
PROVIDERS: ATTEND Physician Assistant
DX: Z01.818 Encounter for other preprocedural examination (principal); J44.9 Chronic obstructive pulmonary disease, unspecified; Z87.891 Personal history of nicotine dependence; R73.03 Prediabetes; L30.9 Dermatitis, unspecified; Z12.11 Encounter for screening for malignant neoplasm of colon; E78.00 Pure hypercholesterolemia, unspecified; Z12.5 Encounter for screening for malignant neoplasm of prostate
CPT/HCPCS: 36415; 80053; 80061; 83036; G0103

== ENCOUNTER → 2025-01-07 | Outpatient (CLI) | payer MEDICARE | LOC: M LAB 08:17 | PROVIDERS: ATTEND Urology | DX: Z12.5 Encounter for screening for malignant neoplasm of prostate (principal) ==